=== PATIENT | female | born 1940 | race Two or more races ===

== ENCOUNTER 2018-09-27 16:41 | Inpatient (IN) | payer OTHER ==
[~2018-09-27] VITALS: Ht 165.1 cm; Wt 73.9 kg
[~2018-09-27 16:41] MED LIST: ATENOLOL25 MG; CIPRO500 MG PO; CIPRO750 MG PO; CLONAZEPAM1 MG PO; COZAAR25 MG; DOCUSATE SODIU100 MG PO; LEVAQUIN500 MG; METHYLPRED4 MG/DOSE- PO; NEURONTIN PO; PERCOCET 5/3251 TAB PO; PYRIDIUM200 MG PO; ZANTAC300 MG PO
[2018-10-08] MEDS ORDERED: OXYCODON-ACETA1 EACH PO (08:11)
[2018-10-08] MEDS ORDERED: ELIQUIS2.5 MG PO (08:11)
[2018-10-08] MEDS ORDERED: LOSARTAN POTASS25 MG PO (12:00)
[2018-10-08] MEDS ORDERED: DOCUSATE SODIU100 MG PO (12:01)
[2018-10-08] MEDS ORDERED: CARAFATE1 GM PO (12:02)
[2018-10-08] MEDS ORDERED: Coreg 6.25MG TABLET PO (12:04)
[2018-10-08] MEDS ORDERED: NeurRONTin 100mg cap PO (12:04)
[2018-10-08] MEDS ORDERED: LASIX20 MG PO (12:04)
[2018-10-08] MEDS ORDERED: Neurin-Sl Tablet Sl SL (12:04)
[2018-10-08] MEDS ORDERED: CLONAZEPAM1 MG PO (12:04)
== END 2018-10-08 15:08 | DRG 469 ==
LOC: ER 16:41 → ICU 21:46 → SURH 21:46 → ICU 09-29 12:59 → SURH 10-05 14:09
PROVIDERS: Orthopaedic Surgery; ADMIT Internal Medicine
PROC: 3E0F7GC Introduction of Other Therapeutic Substance into Respiratory Tract, Via Natural or Artificial Opening (ICD-10-PCS; 2018-09-27)
PROC: 0MTM0ZZ Resection of Left Hip Bursa and Ligament, Open Approach (ICD-10-PCS; 2018-09-28)
PROC: 0SRS0JZ Replacement of Left Hip Joint, Femoral Surface with Synthetic Substitute, Open Approach (ICD-10-PCS; principal; 2018-09-28 13:00)
PROC: 0BH17EZ Insertion of Endotracheal Airway into Trachea, Via Natural or Artificial Opening (ICD-10-PCS; 2018-09-29)
PROC: 5A1945Z Respiratory Ventilation, 24-96 Consecutive Hours (ICD-10-PCS; 2018-09-29)
PROC: B246ZZZ Ultrasonography of Right and Left Heart (ICD-10-PCS; 2018-09-29)
PROC: 4A033R1 Measurement of Arterial Saturation, Peripheral, Percutaneous Approach (ICD-10-PCS; 2018-09-29)
PROC: BH4CZZZ Ultrasonography of Head and Neck (ICD-10-PCS; 2018-09-29)
PROC: 30233N1 Transfusion of Nonautologous Red Blood Cells into Peripheral Vein, Percutaneous Approach (ICD-10-PCS; 2018-09-29)
PROC: 4A12X4Z Monitoring of Cardiac Electrical Activity, External Approach (ICD-10-PCS; 2018-09-29)
PROC: 0DH67UZ Insertion of Feeding Device into Stomach, Via Natural or Artificial Opening (ICD-10-PCS; 2018-09-29)
PROC: 3E0G76Z Introduction of Nutritional Substance into Upper GI, Via Natural or Artificial Opening (ICD-10-PCS; 2018-09-29)
PROC: 02HV33Z Insertion of Infusion Device into Superior Vena Cava, Percutaneous Approach (ICD-10-PCS; 2018-09-30)
DX: S72.032A Displaced midcervical fracture of left femur, initial encounter for closed fracture (principal); J95.821 Acute postprocedural respiratory failure; I33.9 Acute and subacute endocarditis, unspecified; N39.0 Urinary tract infection, site not specified; M80.052A Age-related osteoporosis with current pathological fracture, left femur, initial encounter for fracture; G93.1 Anoxic brain damage, not elsewhere classified; I50.32 Chronic diastolic (congestive) heart failure; D62 Acute posthemorrhagic anemia; N17.8 Other acute kidney failure; E87.2 Acidosis; J90 Pleural effusion, not elsewhere classified; E44.0 Moderate protein-calorie malnutrition; E03.8 Other specified hypothyroidism; M16.12 Unilateral primary osteoarthritis, left hip; I27.20 Pulmonary hypertension, unspecified; Z88.0 Allergy status to penicillin; I07.1 Rheumatic tricuspid insufficiency; R09.02 Hypoxemia; I11.0 Hypertensive heart disease with heart failure; N99.0 Postprocedural (acute) (chronic) kidney failure; D72.828 Other elevated white blood cell count; D69.49 Other primary thrombocytopenia; M65.872 Other synovitis and tenosynovitis, left ankle and foot

== ENCOUNTER 2019-03-05 10:43 | Outpatient (CLI) | payer OTHER ==
[~2019-03-05 10:43] MED LIST changes: +CARAFATE1 GM PO; +Coreg 6.25MG TABLET PO; +ELIQUIS2.5 MG PO; +LASIX20 MG PO; +LOSARTAN POTASS25 MG PO; +NeurRONTin 100mg cap PO; +Neurin-Sl Tablet Sl SL; +OXYCODON-ACETA1 EACH PO
== END 2019-03-05 10:47 | disposition home or self-care (01) ==
LOC: LAB 10:43
DX: E56.1 Deficiency of vitamin K (principal)

== ENCOUNTER 2019-05-07 09:33 | Outpatient (CLI) | payer OTHER | END 2019-05-07 09:42 | disposition home or self-care (01) | LOC: RAD 09:33 | DX: M25.551 Pain in right hip (principal); M25.552 Pain in left hip ==

== ENCOUNTER 2020-08-13 07:13 | Outpatient (CLI) | payer OTHER | END 2020-08-13 07:14 | disposition home or self-care (01) | LOC: NUCLEAR 07:13 | PROVIDERS: ATTEND Orthopaedic Surgery | DX: M25.552 Pain in left hip (principal); Z96.642 Presence of left artificial hip joint | CPT/HCPCS: 78315; A9503 ==

== ENCOUNTER → 2020-08-15 | Outpatient (CLI) | payer OTHER | END | disposition home or self-care (01) | LOC: NUCLEAR 10:53 | PROVIDERS: ATTEND Orthopaedic Surgery | DX: I73.89 Other specified peripheral vascular diseases (principal); I73.9 Peripheral vascular disease, unspecified ==

== ENCOUNTER 2020-08-16 09:51 | Outpatient (CLI) | payer OTHER | END 2020-08-16 09:54 | disposition home or self-care (01) | LOC: NUCLEAR 09:51 | PROVIDERS: ATTEND Orthopaedic Surgery | DX: I87.2 Venous insufficiency (chronic) (peripheral) (principal) ==

== ENCOUNTER 2020-10-09 10:24 | Outpatient (CLI) | payer OTHER | END 2020-10-09 10:25 | disposition home or self-care (01) | LOC: NUCLEAR 10:24 | PROVIDERS: ATTEND Internal Medicine | DX: I10 Essential (primary) hypertension (principal) ==

== ENCOUNTER 2021-02-18 13:36 | Emergency (ER) | payer OTHER ==
[~2021-02-18] VITALS: Ht 165.1 cm; Wt 68.0 kg
[2021-02-18] MEDS ORDERED: NORFLEX100MG PO (15:50)
[2021-02-18] MEDS ORDERED: KETO10TA2 PO (15:50)
[2021-02-18] MEDS ORDERED: MEDROLPACK PO (15:50)
== END 2021-02-18 16:09 | disposition home or self-care (01) ==
LOC: ER 13:36
DX: M54.59 Other low back pain (principal)

== ENCOUNTER 2021-07-21 13:06 | Emergency (ER) | payer OTHER ==
[~2021-07-21] VITALS: Ht 154.9 cm; Wt 83.9 kg
[~2021-07-21 13:06] MED LIST changes: +KETO10TA2 PO; +MEDROLPACK PO; +NORFLEX100MG PO
[2021-07-21] MEDS ORDERED: LEVOTHYROXINE50 MCG PO (13:44)
== END 2021-07-21 15:56 | disposition home or self-care (01) ==
LOC: ER 13:06
DX: S29.9XXA Unspecified injury of thorax, initial encounter (principal); W01.0XXA Fall on same level from slipping, tripping and stumbling without subsequent striking against object, initial encounter; Y93.89 Activity, other specified; Y92.012 Bathroom of single-family (private) house as the place of occurrence of the external cause

== ENCOUNTER 2024-04-12 18:43 | Emergency (ER) | payer OTHER ==
[~2024-04-12] VITALS: Ht 165.1 cm; Wt 68.0 kg
[~2024-04-12 18:43] MED LIST changes: +LEVOTHYROXINE50 MCG PO; +TOPROL XL100 M1; +TRAMADOL
[2024-04-12] MEDS ORDERED: MEPERIDINE HCL 25 MG/ML AMPUL IM ONE (20:15)
[2024-04-12] MEDS ORDERED: ACETAMINOPHEN WITH CODEINE 1 UDTAB TABLET PO ONE (20:15)
== END 2024-04-12 21:44 | disposition home or self-care (01) ==
LOC: ER 18:45
DX: M54.50 Low back pain, unspecified (principal); I10 Essential (primary) hypertension; E03.9 Hypothyroidism, unspecified; Z98.1 Arthrodesis status; Z88.0 Allergy status to penicillin
CPT/HCPCS: 96372; 99282; J3490

== ENCOUNTER 2024-05-13 16:05 | Emergency (ER) | payer OTHER ==
[~2024-05-13] VITALS: Ht 167.6 cm; Wt 81.6 kg
[2024-05-13] MEDS ORDERED: KETOROLAC TROMETHAMINE 30 MG VIAL IM STA (17:27)
[2024-05-13] MEDS ORDERED: KETOROLAC TROMETHAMINE 30 MG VIAL ONE (17:41)
== END 2024-05-13 18:55 | disposition home or self-care (01) ==
LOC: ER 16:08
DX: T14.90XA Injury, unspecified, initial encounter (principal); W19.XXXA Unspecified fall, initial encounter; Y93.89 Activity, other specified; Y92.018 Other place in single-family (private) house as the place of occurrence of the external cause; Y99.9 Unspecified external cause status; I10 Essential (primary) hypertension; Z88.8 Allergy status to other drugs, medicaments and biological substances

== ENCOUNTER 2024-05-20 07:30 | Outpatient (CLI) | payer OTHER | END 2024-05-20 07:31 | disposition home or self-care (01) | LOC: NUCLEAR 07:30 | PROVIDERS: ATTEND Internal Medicine | DX: I11.9 Hypertensive heart disease without heart failure (principal) | CPT/HCPCS: 78452; 93017; A9500 ==

== ENCOUNTER 2024-07-08 07:17 | Outpatient (CLI) | payer OTHER | END 2024-07-08 07:23 | disposition home or self-care (01) | LOC: NUCLEAR 07:17 | PROVIDERS: ATTEND Internal Medicine | DX: I20.9 Angina pectoris, unspecified (principal) | CPT/HCPCS: 78452; 93017; A9500; J0153 ==

== ENCOUNTER 2024-08-31 11:00 | Inpatient (IN) | payer OTHER ==
[~2024-08-31] VITALS: Ht 165.1 cm; Wt 83.0 kg
[2024-08-31 12:33] VITALS: BP 161/87
[2024-09-06] MEDS ORDERED: METHYLPREDNISOLONE ACETATE 80 MG/ML VIAL ONE (06:37)
[2024-09-06] MEDS ORDERED: VANCOMYCIN HCL 1,000 MG VIAL ONE ×3 (06:38→14:09)
[2024-09-06] MEDS ORDERED: METHYLPREDNISOLONE SOD SUCC 125 MG VIAL ONE ×2 (06:38→11:25)
[2024-09-06] MEDS ORDERED: MEDROLPACK PO (07:29)
[2024-09-06] MEDS ORDERED: PERCOCET 5-3251 EACH PO (07:29)
[2024-09-06] MEDS ORDERED: COLACE100 MG PO (07:30)
[2024-09-06] MEDS ORDERED: GABAPENTIN100 M2 PO (07:30)
[2024-09-06] MEDS ORDERED: BACTRIM DS TAB1 EACH PO (07:30)
[2024-09-06] MEDS ORDERED: ZOFRAN8 MG PO (07:30)
[2024-09-06] MEDS ORDERED: NEURONTIN800 MG PO (07:31)
[2024-09-06] MEDS ORDERED: PROMETHAZINE HCL 50 MG/ML AMPUL IM PRN (07:45)
[2024-09-06] MEDS ORDERED: ENALAPRILAT DIHYDRATE 1.25 MG/ML VIAL IV PRN (07:45)
[2024-09-06] MEDS ORDERED: 0.9 % SODIUM CHLORIDE 1,000 ML IV SCH (07:45)
[2024-09-06] MEDS ORDERED: MORPHINE SULFATE 4 MG/ML CARTRIDGE IV SCH (09:00)
[2024-09-06] MEDS ORDERED: DOCUSATE SODIUM 100MG CAP PO SCH (09:00)
[2024-09-06] MEDS ORDERED: TAMSULOSIN HCL 0.4 MG CAP PO SCH (09:00)
[2024-09-06] MEDS ORDERED: METHYLPREDNISOLONE SOD SUCC 125 MG VIAL IV SCH (09:00)
[2024-09-06] MEDS ORDERED: FAMOtidine 20 MG TABLET PO SCH (09:00)
[2024-09-06] MEDS ORDERED: VANCOMYCIN HCL 1,000 MG VIAL IV SCH (09:00)
[2024-09-06] MEDS ORDERED: MORPHINE SULFATE 4 MG/ML VIAL IV ONE (10:25)
[2024-09-06 12:36] VITALS: BP 161/87; O2SAT 95
[2024-09-06 14:42] VITALS: O2SAT 96
[2024-09-06 16:00] VITALS: BP 185/81; O2SAT 95
[2024-09-06 17:53] VITALS: O2SAT 97
[2024-09-06] MEDS ORDERED: ACETAMINOPHEN 500 MG GEL..CAP PO SCH (20:00)
[2024-09-06] MEDS ORDERED: GABAPENTIN 800 MG TABLET PO SCH (21:00)
[2024-09-06] MEDS ORDERED: LORazepam 0.5 MG TABLET PO SCH (21:00)
[2024-09-06 21:40] VITALS: O2SAT 94
[2024-09-07] VITALS (7 sets, daily range): BP systolic 039–155; BP diastolic 69–79; O2SAT 90–98
[2024-09-07] MEDS ORDERED: SODIUM CHLORIDE 0.45 % 1,000 ML IV SCH
[2024-09-07] MEDS ORDERED: LEVOTHYROXINE SODIUM 50 MCG TABLET PO SCH (06:00)
[2024-09-07] MEDS ORDERED: OxyCODONE HCL 5 MG TABLET (ROXICODONE) PO PRN (06:01)
[2024-09-07] MEDS ORDERED: VANCOMYCIN HCL 1,000 MG VIAL ONE (06:57)
[2024-09-07 08:18] LABS: CALCIUM 8.5 mg/dL (8.5-10.1); CREATININE SERUM 0.95 mg/dL (0.55-1.02); GFR 56.04; POTASSIUM 5.06 mEq/L (3.5-5.1)
[2024-09-07] MEDS ORDERED: METOPROLOL SUCCINATE 100 MG TAB.SR.24H PO SCH (09:00)
[2024-09-07 11:07] LABS: BASO % 0.1 % (0.1-1.2); HEMATOCRIT 40.3 % (34.1-44.9); HEMOGLOBIN 12.8 g/dL (11.2-15.7); LYMPH # 0.68 (1.18-3.74); LYMPH % 4.6 % (19.3-53.1); MEAN CORPUSCULAR HEMOGLOBIN 28.2 pg (25.6-32.2); MONO # 0.93 (0.24-0.82); MONO % 6.3 % (4.7-12.5); NEUT # 13.03 (1.56-6.13); NEUT % 88.6 % (34.0-71.1); PLATELET COUNT 218 K/uL (163-369); RED BLOOD COUNT 4.54 M/uL (3.93-5.22); RED CELL DISTRIBUTION WIDTH 14.4 % (11.6-14.4)
[2024-09-08 00:32] VITALS: O2SAT 90
[2024-09-08 00:53] VITALS: BP 130/76; O2SAT 97
[2024-09-08 03:57] VITALS: O2SAT 95
[2024-09-08 08:00] VITALS: BP 152/76; O2SAT 95
== END 2024-09-08 21:59 | disposition home or self-care (01) | DRG 402 ==
LOC: SURH 09-06 04:15 → O/R 09-06 04:15 → SURH 09-06 07:00
PROVIDERS: ADMIT Orthopaedic Surgery Orthopaedic Surgery of the Spine; ATTEND Orthopaedic Surgery Orthopaedic Surgery of the Spine
PROC: XRGB0R7 Fusion of Lumbar Vertebral Joint using Custom-Made Anatomically Designed Interbody Fusion Device, Open Approach, New Technology Group 7 (ICD-10-PCS; 2024-09-06)
PROC: 0ST20ZZ Resection of Lumbar Vertebral Disc, Open Approach (ICD-10-PCS; 2024-09-06)
PROC: 0QB30ZZ Excision of Left Pelvic Bone, Open Approach (ICD-10-PCS; 2024-09-06)
PROC: 07DR0ZZ Extraction of Iliac Bone Marrow, Open Approach (ICD-10-PCS; 2024-09-06)
PROC: 4A1104G Monitoring of Peripheral Nervous Electrical Activity, Intraoperative, Open Approach (ICD-10-PCS; 2024-09-06)
PROC: 0SG0071 Fusion of Lumbar Vertebral Joint with Autologous Tissue Substitute, Posterior Approach, Posterior Column, Open Approach (ICD-10-PCS; principal; 2024-09-06 07:00)
DX: M43.16 Spondylolisthesis, lumbar region (principal); M48.062 Spinal stenosis, lumbar region with neurogenic claudication; M51.34 Other intervertebral disc degeneration, thoracic region; I10 Essential (primary) hypertension; E03.9 Hypothyroidism, unspecified